=== PATIENT | female | born 1965 | race Caucasian/White ===

== ENCOUNTER → 2017-09-17 | Outpatient (CLI) | payer OTHER ==
[~2017-09-17] MED LIST: OMEG10007 PO; VITAMIN B PO
--- NOTE | 2017-09-17 09:05 | DIAGNOSTIC IMAGING REPORT ---
ABDOMEN LIMITED (US) HISTORY: 52 years-old Female RIGHT UPPER QUADRANT PAIN acute right upper quadrant abdominal pain COMPARISON: None available TECHNIQUE: Multiple real-time sonographic images of the abdominal right upper quadrant were obtained assessing grayscale appearance and color flow FINDINGS: The imaged pancreas appears unremarkable. Body and tail are obscured by bowel gas. The liver appears to be within normal limits without focal mass or intrahepatic biliary ductal dilation. Surgically absent gallbladder. Common bile duct measures in the upper limits of normal, 6 mm which is likely physiologic with postcholecystectomy state. Imaged right kidney is unremarkable without hydronephrosis, 10.3 cm in length. No other focal abnormal amount identified within the abdominal right upper quadrant. Valsalva technique demonstrated no abdominal wall hernia. IMPRESSION: Prior cholecystectomy without acute right upper quadrant abnormality identified. The above report was generated using voice recognition software. It may contain grammatical, syntax or spelling errors. Electronically signed by: Clark Smith M.D. 09/17/2017 9:03 AM Dictated Date/Time: 09/17/2017 9:02 AM
== END | disposition home or self-care (01) ==
LOC: C.ULTR 08:15
PROVIDERS: ATTEND Family Medicine
DX: R10.11 Right upper quadrant pain (principal); Z91.013 Allergy to seafood; Z90.49 Acquired absence of other specified parts of digestive tract

== ENCOUNTER 2018-11-05 05:58 | Inpatient (IN) ==
--- NOTE | 2018-10-19 10:47 | Anesthesiology Consultation ---
Date of Service October 19, 2018 Assessment & Plan (1) Encounter for pre-operative examination: Chart Review Chart Review: Acceptable Risk for Surgery and Patient seen in Pre Admission Testing Consults Requested none Teaching & Discussion Pre-Anesthesia Teaching/Discussion Notes: Instructed NPO after midnight before surgery, except medications with 15 cc of water. Medication instructions provided according to the PAT guidelines. History Surgery Operation Date: 11/05/18 07:45 Proposed Procedures p C5 Corpectomy, C6-C7 Anterior Cervical Discectomy and Fusion, Spinal Cord Monitoring - Bismark Ch DO Height/Weight Height: 5 ft 4.75 in Weight: 79.5 kg Allergies Allergy/AdvReac Type Severity Reaction Status Date / Time hazelnut Allergy Severe THROAT Verified 10/15/18 11:42 ITCHING No Known Drug Allergies Allergy Unknown . 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 Limited for past year due to knee and back pain. Still goes for power walks. Able to climb FOS easily. Denies CP or SOB. ) Past Family History Family History Aunt Family hx of colon cancer Father Family hx colonic polyps Past Surgical History Surgical History Bone spur LEFT FOOT X 2 H/O oophorectomy LEFT H/O shoulder surgery RT SHOULDER SURGERY RT MANIPULATION History of cholecystectomy History of colonoscopy x4 History of tooth extraction Past Anesthesia History No Hx of Anesthesia Complications and No Family Hx of Anesthesia Complications H/O Bradycardia in PACU History of PONV No Hx of PONV and Hx of Motion Sickness STOP BANG Total 1 Social History Smoking Status: Former smoker tobacco type: cigarettes Smoking cigarettes per day: ~1/2 ppd or less x 19 years Do You Dip or Chew Tobacco: No Smoking End Date: QUIT AGE 37 Hx Alcohol Use: Yes Alcohol type: wine and hard liquor alcohol intake frequency: a few times a week Hx Substance Use: No substance use type: does not use Review of Systems Patient denies chest pain, shortness of breath, dyspnea on exertion, cough, wheezing, palpitations. +Joint Pain (Neck, Back, Knees, Shoulders) +Acid Reflux (Mild, Diet controlled) Physical Exam Vital Signs BP: 122/84 P: 71 R: 16 T: 98.1 SPO2: 97% on RA ENMT Thyromental Distance: > or= 3.5 Finger Breadths (3.5) Mallampati Class: I Neck normal visual inspection and + limited neck extension Difficult examination due to patient being in a soft collar Respiratory normal respiratory effort Auscultation: lungs clear to auscultation bilaterally Cardiovascular Rate/Rhythm: regular rate and regular rhythm Heart Sounds: no murmur Neurologic moves all extremities Psychiatric Orientation: alert and oriented x 3 Testing Laboratory Results 10/19/18 11:33 10/19/18 11:33 10/19/18 10/19/18 10/19/18 11:33 11:33 11:33 PT 10.8 INR 1.1 APTT 27.0 Urine Color Yellow Urine Appearance Clear Urine pH 6.0 Ur Specific [place] 1.009 Urine Protein Negative Urine Glucose (UA) Negative Urine Ketones Negative Urine Nitrite Negative Ur Leukocyte Esterase Negative Blood Type A Positive Antibody Screen NEGATIVE Electrocardiogram Date: 10/19/18 Findings: + SB @ (57) and + no change from (08/20/15) Chest X-Ray FINDINGS: Cardiomediastinal silhouette normal. Lungs and pleural spaces clear. Prominent nipple shadows project over the lung bases. Mild degenerative changes of the spine. Cholecystectomy clips noted. IMPRESSION: 1. No acute cardiopulmonary disease. Other Testing MR cervical spine wo con 10/08/18 IMPRESSION: 1. Significant bulging discs and of mild/moderate disc herniations and multilevel bases. 2. This is most prominent at C4-C5 where a right central disc herniation is present with considerable narrowing of the right neuroforamina. 3. Significant but less prominent mild disc herniations at C5-C6 and C3-C4. 4. Significant osteophytic narrowing of the right neuroforamina at C3-C4. 5. Significant osteophytic narrowing of the neuroforamina bilaterally at C6-C7 associated with a broad-based bulging disc.
--- NOTE | 2018-10-19 10:49 | PAT Medication Instructions ---
Medication Instructions Date of Service October 19, 2018 Home Medications bupropion HCl [Wellbutrin SR] 100 mg PO QAM Take morning of surgery With a small sip of water, OTHERWISE NOTHING TO EAT OR DRINK AFTER MIDNIGHT: bupropion HCl [Wellbutrin SR] 100 mg PO QAM Other Notes If you have any questions please call us at [phone] or [phone] or [phone] or [phone]
--- NOTE | 2018-10-19 12:27 | XRay Report ---
XR chest Pre-admission PA/Lat CLINICAL HISTORY: 53 years-old Female presenting with preoperative assessment. TECHNIQUE: PA and lateral views of the chest were obtained. COMPARISON: None. FINDINGS: Cardiomediastinal silhouette normal. Lungs and pleural spaces clear. Prominent nipple shadows project over the lung bases. Mild degenerative changes of the spine. Cholecystectomy clips noted. IMPRESSION: 1. No acute cardiopulmonary disease. Electronically signed by: Alexander Ambrose M.D. 10/19/2018 12:26 PM
[2018-10-19 12:43] LABS: Appearance Urine Clear (Clear); Basophils # (auto) 0.05 K/uL (0-0.2); Bilirubin Urine Negative (Negative); Blood Urine Negative (Negative); Color Urine Yellow; Eosinophils # (auto) 0.27 K/uL (0-0.5); Eosinophils % (auto) 5.3 %; Glucose Urine UA Negative (Negative); Hematocrit (blood only) 38.8 % (37-47); Hemoglobin 13.2 g/dL (12.0-16.0); Ketones Urine Negative (Negative); Leukocyte Esterase Urine Negative (Negative); Lymphocytes # (auto) 1.95 K/uL (1.2-3.4); Lymphocytes % (auto) 38.6 %; Mean Platelet Volume 11.4 fL (7.4-10.4); Monocytes # (auto) 0.24 K/uL (0.11-0.59); Monocytes % (auto) 4.8 %; Neutrophils # (auto) 2.54 K/uL (1.4-6.5); Neutrophils % (auto) 50.3 %; Nitrite Urine Negative (Negative); Platelet Count 233 K/uL (130-400); Protein Urine Negative (Negative); RDW Coefficient of Variation 12.4 % (11.5-14.5); RDW Standard Deviation 41.1 fL (36.4-46.3); Red Blood Count 4.31 M/uL (4.2-5.4); Specific Gravity Urine 1.009 (1.000-1.030); Urobilinogen Urine Negative (Negative); White Blood Count 5.05 K/uL (4.8-10.8)
[2018-10-19 13:01] LABS: INR 1.1 (0.9-1.1); Prothrombin Time 10.8 Seconds (9.0-12.0)
[2018-10-19 15:19] LABS: BUN Creatinine Ratio 23.5 (10-20); Calcium 9.3 mg/dl (8.5-10.1); Creatinine Clr Calc Pharmacy 94.7 ml/min; Est GFR (African American) 111.6; Est GFR (Non-African American) 96.3
[2018-11-05] MEDS ORDERED: CEFAZOLIN 1000MG 1,000 MG/7.5 ML SYR IV SCH (06:00)
[2018-11-05] MEDS ORDERED: CeleBREX 200 MG CAP PO SCH (06:00)
[2018-11-05] MEDS ORDERED: LR 15ML/HR IV SCH (06:00)
[2018-11-05] MEDS ORDERED: GABAPENTIN 300 MG x 3 PO SCH (06:00)
[2018-11-05] MEDS ORDERED: ACETAMINOPHEN 500 MG TAB PO SCH (06:00)
[2018-11-05] MEDS ORDERED: ROCURONIUM BROMIDE 10 MG/ML 5 ML VIAL ONE (06:34)
[2018-11-05] MEDS ORDERED: LIDOCAINE HCL 2% 2 ML VIAL/AMP(20MG/ML) INFIL ONE (06:34)
[2018-11-05] MEDS ORDERED: PROPOFOL IV EMULSION 10 MG/ML 20 ML VIAL IV ONE ×2 (06:34→08:00)
[2018-11-05] MEDS ORDERED: SUCCINYLCHOLINE CHLORIDE 20 MG/ML 10 ML VIAL ONE (06:34)
[2018-11-05] MEDS ORDERED: DEXAMETHASONE SOD INJ 4 MG/ML VIAL ONE (06:34)
[2018-11-05] MEDS ORDERED: ONDANSETRON INJ 2 MG/ML 2 ML VIAL ONE ×2 (06:34→10:11)
[2018-11-05] MEDS ORDERED: MIDAZOLAM HCL 1 MG/ML 2ML VIAL ONE (06:35)
[2018-11-05] MEDS ORDERED: fentaNYL citrate 100 MCG/2 ML VIAL ONE ×2 (06:35→08:53)
[2018-11-05] MEDS ORDERED: ACETAMINOPHEN 1000 MG/100 ML IV IV ONE (07:01)
[2018-11-05] MEDS ORDERED: ATROPINE SULFATE 0.1 MG/ML 10ML SYR IV PRN (07:03)
[2018-11-05] MEDS ORDERED: HYDROmorphone INJ 1 MG/ML SYRINGE IV PRN (07:03)
[2018-11-05] MEDS ORDERED: PROMETHAZINE HCL 6.25 MG in SODIUM CHLORIDE 0.9% 50 ML IV PRN (07:03)
[2018-11-05] MEDS ORDERED: ONDANSETRON INJ 2 MG/ML 2 ML VIAL IV PRN ×2 (07:03→11:56)
[2018-11-05] MEDS ORDERED: BACITRACIN INJ 50,000 UNIT VIAL ONE (07:06)
[2018-11-05] MEDS ORDERED: PROPOFOL IV EMULSION 10 MG/ML 100 ML VIAL IV ONE (07:17)
--- NOTE | 2018-11-05 07:36 | History & Physical Bridge Note ---
Date of Service November 05, 2018 History & Physical Bridge Note I have examined the patient, reviewed the History & Physical and in the interval since the performance of the History & Physical I have noted the following changes of clinical significance: no changes noted
--- NOTE | 2018-11-05 07:37 | History & Physical Report ---
Date of Service November 05, 2018 Assessment & Plan (1) Neurogenic claudication due to lumbar spinal stenosis: Corpectomy C5 anterior cervical discectomy and fusion C6-7 Present on Admission?: Yes History of Present Illness Chief Complaint: Neck and arm pain Primary Care Provider: Courtney Baxter MD Patient is a 53-year-old female with chronic persistent neck and arm symptoms. After failing extensive course of nonoperative care she is here for surgical intervention. Allergies Allergy/AdvReac Type Severity Reaction Status Date / Time hazelnut Allergy Severe THROAT Verified 11/05/18 06:20 ITCHING No Known Drug Allergies Allergy Unknown . 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 Required: No Beliefs That Will Affect Care: None Current Living Situation: Spouse Other Information That Helps Us Care for You: No Feels Safe at Home: Yes Safety Concerns: Feels Safe At This Time Smoking Status: Former smoker Tobacco Type: cigarettes Cigarettes Per Day: ~1/2 ppd or less x 19 years Do You Dip or Chew Tobacco: No Smoking End Date: QUIT AGE 37 Second Hand Exposure: No Tobacco Cessation Education Requested by Patient: No Hx Alcohol Use: Yes Alcohol type: wine and hard liquor Hx Substance Use: No Physical Exam Physical Exam: Patient is alert and oriented neurologically intact Results & Data Vital Signs (Past 12 Hours) Vital Signs Temp Pulse Resp BP Pulse Ox 11/05/18 06:22 37.0 C 82 18 123/74 97
[2018-11-05] MEDS ORDERED: ePHEDrine sulfate 50 MG/ML SYR ONE (08:22)
[2018-11-05] MEDS ORDERED: PHENYLEPHRINE 100MCG/ML 5ML SYR ONE (08:22)
[2018-11-05] MEDS ORDERED: KETAMINE HCL INJ 50 MG/ML 10 ML VIAL ONE (08:43)
[2018-11-05] MEDS ORDERED: FLOSEAL HEMOSTATIC MATRIX 10ML TOP ONE (10:07)
[2018-11-05] MEDS ORDERED: GLYCOPYRROLATE 0.2 MG/ML VIAL ONE (10:11)
[2018-11-05] MEDS ORDERED: NEOSTIGMINE METHYLSULFATE 1 MG/ML 10ML VIAL ONE (10:11)
--- NOTE | 2018-11-05 10:12 | Operative Report ---
Post Operative Report Pre & Post Diagnosis Operation Date: 11/05/18 07:45 Pre-Op Diagnosis: Cervical spinal stenosis with myeloradiculopathy Post-Op Diagnosis: Same Procedure Operation Date: 11/05/18 07:45 Actual Procedures #1 anterior cervical corpectomy C5 with bilateral foraminotomies. #2 anterior cervical discectomy with bilateral foraminotomies C6-7. #3 anterior cervical arthrodesis C4-C6 and C6-C7. #4 placement of peek cage 23 mm in height C4-C6 and 7 mm in height at C6-7. #5 placement of willis plate and screws from C4-C7. #6 placement of locally harvested morselized autograft combined with DBM in the interbody cages. Surgeon Bismark Ch, String Studies Director Salvador Gates Estimated Blood Loss 20 Findings Consistent with Post-Op Diagnosis Specimens None Indications This is a 53-year-old female who presents with progressive weakness and difficulty with coordination involving upper extremities left greater than right. Subsequently like to go to the above-mentioned procedure. Description of Procedure Patient was met with identified and informed consent obtained. She was then ambrocio en to the operative suite underwent intubation placed in supine position the [place] table with head Das cigar head holer. All bony prominences well-padded eyes inspected to ensure no external pressure placed upon the peer at this point the anterior cervical spine was prepped and draped in normal sterile fashion. The assistance of fluoroscopy identified the see 5 6 disc space and a transverse incision was placed along the right anterior aspect of the cervical spine overlying this region. Sharp dissection with the assistance of bipolar electrocautery was performed down to and exposing the anterior cervical spine from C4-C7. Self-retaining retractors placed. Then performed a complete discectomy of see 4 5 out to the uncovertebral joints bilaterally followed by C6 5 6. [place] distracting pins were then placed in C4 and C6 to distract across the C5 vertebral body. A complete corpectomy was then performed including removal of all posterior annular fibers longitudinal ligament bilateral foraminotomies at both levels. Endplates were then burred to subcortical bleeding bone and a 23 mm peek cage filled with local autograft and DBM tapped in position. Distraction apparatus was removed and I proceeded to see 6 7. Again complete discectomy performed up to the uncovertebral joints bilaterally. This included removal of all posterior annular fibers and longitudinal ligament. The endplates were then burred to subcortical being bone and a 7 mm peek cage filled with local autograft and DBM tapped in position. Distraction apparatus was removed and a willis plate and screws applied with the assistance of fluoroscopy. The incision was then copiously irrigated explored to ensure no damage to surrounding structures remaining bleeding. 10 round BELLE drain inserted. The incision was then closed with 2 Vicryl in a fashion of 4 Monocryl for final closure Steri-Strip sterile dressings placed. Patient will continue to PACU stable condition. Please note record present at the entire procedure involved in patient positioning of the surgery and final skin closure. Lastly spinal cord monitoring was utilized throughout the procedure no changes noted. I attest to the content of the Intraoperative Record and any orders documented therein. Any exceptions are noted below.
--- NOTE | 2018-11-05 10:47 | Fluoroscopy Report ---
FL cervical 2-3V CLINICAL HISTORY: 53 years-old Female presenting with C5 CORPECTOMY, C6-C7 ACDF. TECHNIQUE: 3 fluoroscopic image(s) recorded as part of an intraoperative procedure. COMPARISON: Cervical spine MR from 10/08/2018. FINDINGS/IMPRESSION: There has been interval anterior cervical discectomy and fusion of C4-C7. C5 corpectomy. Normal anato castro alignment though there is slight straightening of normal lordosis. Supportive tubes devices and s urgical material project over the anterior soft tissues of the neck. Endotracheal tube terminates in the upper thoracic trachea. Please see surgical report for further details. Fluoroscopy dosage (mGy): 1.36. Fluoroscopy time: 12.6 seconds. Number or time of high level fluoroscopy (HLF), digital spot, or digital subtraction images: 0. Electronically signed by: Alexander Ambrose M.D. 11/05/2018 10:45 AM
--- NOTE | 2018-11-05 11:29 | Anesthesiology Progress Note ---
Date of Service November 05, 2018 Anesthesia Post Procedure Vital Signs Vital Signs: Temp Pulse Pulse Resp BP Pulse Ox 11/05/18 11:20 36.4 C L 62 19 110/61 100 11/05/18 11:10 76 15 114/61 100 11/05/18 11:00 63 12 113/61 100 11/05/18 10:50 77 17 119/63 100 11/05/18 10:40 68 13 114/64 100 11/05/18 10:30 80 14 104/71 100 11/05/18 10:24 36.4 C L 95 H 18 111/66 100 11/05/18 06:22 37.0 C 82 18 123/74 97 Pain Intensity Neck: Pain Intensity: 4 Transfer of Care Handoff Completed per policy Notes Mental Status: alert / awake / arousable Patient Amnestic to Procedure: Yes Nausea / Vomiting: adequately controlled Pain: adequately controlled Airway Patency, RR, SpO2: stable & adequate BP & HR: stable & adequate Hydration State: stable & adequate Anesthetic Complications: no major complications apparent
[2018-11-05] MEDS ORDERED: NALOXONE HCL 0.4 MG/1 ML VIAL/CARP IV PRN (11:56)
[2018-11-05] MEDS ORDERED: DiphenhydrAMINE HCL 50 MG/ML VIAL IV PRN (11:56)
[2018-11-05] MEDS ORDERED: DO NOT ADMINISTER PNEUMOCOCCAL VACCINE PRN (11:56)
[2018-11-05] MEDS ORDERED: ACETAMINOPHEN 1,000 MG/100 ML VIAL IV PRN (11:56)
[2018-11-05] MEDS ORDERED: DEXAMETHASONE SOD PHOSPHATE 8 MG in SYRINGE 0 ML IV PRN (11:56)
[2018-11-05] MEDS ORDERED: HYDROmorphone INJ 0.5 MG/0.5 ML SYR IV PRN (11:56)
[2018-11-05] MEDS ORDERED: LORazepam 0.5 MG/1 ML VIAL IV PRN (11:56)
[2018-11-05] MEDS ORDERED: MAGNESIUM HYDROXIDE SUSP 30 ML UDC PO PRN (11:56)
[2018-11-05] MEDS ORDERED: DO NOT ADMINISTER FLU VACCINE PRN (11:56)
[2018-11-05] MEDS ORDERED: LORazepam 0.5 MG TAB PO PRN (11:56)
[2018-11-05] MEDS ORDERED: RACEPINEPHRINE 2.25% NEBU SOLN 0.5 ML VIAL INH PRN (11:56)
[2018-11-05] MEDS ORDERED: SENNA 8.6 MG TAB PO PRN (11:56)
[2018-11-05] MEDS: LACTATED RINGER'S 1,000 ML IV SCH ×2 (12:18→23:02)
[2018-11-05] MEDS ORDERED: SCOPOLAMINE 1.5 MG TDSY TD SCH (12:30)
[2018-11-05] MEDS: CHECK SCOPOLAMINE PATCH PLACEMENT SCH (15:50)
[2018-11-05] MEDS: OXYCODONE HCL IR 5 MG TAB (IMMEDIATE RELEASE) PO PRN ×2 (15:50→20:31)
[2018-11-05] MEDS: CEFAZOLIN 2000MG 2,000 MG/15 ML SYR IV SCH (16:45)
[2018-11-05] MEDS: DOCUSATE SODIUM 100 MG CAP PO SCH (20:28)
[2018-11-06] MEDS: CHECK SCOPOLAMINE PATCH PLACEMENT SCH ×2 (00:34→07:35)
[2018-11-06] MEDS: CEFAZOLIN 2000MG 2,000 MG/15 ML SYR IV SCH ×2 (00:37→07:35)
[2018-11-06] MEDS: OXYCODONE HCL IR 5 MG TAB (IMMEDIATE RELEASE) PO PRN (07:35)
[2018-11-06] MEDS ORDERED: BuPROPion SR 100 MG TABCR PO SCH (09:00)
[2018-11-06] MEDS: DOCUSATE SODIUM 100 MG CAP PO SCH (09:06)
--- NOTE | 2018-11-06 09:49 | Discharge Summary ---
Date of Service November 06, 2018 Admission HPI Per Admitting Provider Patient is a 53-year-old female with chronic persistent neck and arm symptoms. After failing extensive course of nonoperative care she is here for surgical intervention. Principal Diagnosis Cervical spinal stenosis with myeloradiculopathy Discharge Data Allergies Allergy/AdvReac Type Severity Reaction Status Date / Time hazelnut Allergy Severe THROAT Verified 11/05/18 06:20 ITCHING No Known Drug Allergies Allergy Unknown . Verified 11/05/18 06:20 shellfish derived AdvReac Mild BLOATING Verified 11/05/18 06:20 AND IRRITABLE BOWEL Procedures Performed Operation Date: 11/05/18 07:45 Actual Procedures p C5 Corpectomy, C6-C7 Anterior Cervical Discectomy and Fusion, Spinal Cord Monitoring - Bismark Ch DO Ordered Studies 11/05/18 07:45 FL cervical 2-3V Routine FL fluoroscopy <1hr Routine Hospital Course (1) Neurogenic claudication due to lumbar spinal stenosis: Patient underwent anterior cervical corpectomy discectomy fusion tolerated as well as taken to orthopedic for possibly. Postop day 1 she was ambulating halls well. Arm symptoms improved. Swallowing well. No hoarseness. Subsequently she was discharged home. Discharge orders instructions from the chart for further review. Total Time Total Time Spent Total Time Spent (In Minutes): 20 minutes Discharge Plan Discharge Items Patient Disposition: Home - Self-Care Reason For Visit: Spinal Stenosis, Cervical Region Discharge Diagnosis: cervical stenosis Discharge Goals: Improve disease control Activity: Per 'Additional Instructions' section Non-emergency contact: Primary Care Provider Call non-emergency contact if: you have any medication questions Follow-up/Referrals: Courtney Baxter MD [Primary Care Provider] - Diet: Regular Addtl Provider Instructions: ACTIVITY RECOMMENDATIONS: SELF CARE INSTRUCTIONS AFTER CERVICAL FUSIONS 1. No smoking. Smoking drastically decreases the chance of a solid fusion. 2. No bending, lifting more than 5 pounds, or twisting (roll like a log when turning in bed). 3. You may shower 3 days after surgery. Thoroughly dry wound. Do not soak in the tub. 4. Cervical collar: Must be worn at all times including sleeping. You may remove the brace only to bath, eat and if you are sitting in a recliner. 5. Please walk as much as you can for exercise. Gradually increase the distance that you walk as your endurance increases. SPECIAL CARE INSTRUCTIONS: VERY IMPORTANT TO READ AND REVIEW A. Do not take any anti-inflammatory medications (i.e. Indocin, Advil, Aspirin, Naprosyn, Aleve, Motrin, etc.) as these may inhibit the chance of a solid fusion. Tylenol is okay to take. B. Your surgical incision has been closed with a cosmetic suture under the skin that will dissolve in about 6 weeks. In 14 days, you can use a pair of clean scissors and cut the suture that is left outside of the skin at the ends of your incision. C. Complications are uncommon, but please contact us if you have any signs or symptoms of: 1. wound infection (fever higher than 102.5 degrees F, redness, separation of wound, drainage, or increasing pain from the incision) 2. blood clots in legs (pain, swelling, redness and warmth in legs) 3. urinary tract infection (fever higher than 102.5 degrees, burning upon urination or increased frequency of urination) 4. nerve problems (inability to walk on your toes or heels, numbness, loss of bowel or bladder control) 5. any other symptoms that concern you. D. Please call the office at if you have any concerns or questions about your operation or recovery. MANAGING PAIN AFTER SPINAL SURGERY 1. Narcotic medication is intended for short-term use and will be provided for surgical pain. Surgical pain usually lasts for a period of 4-6 weeks. Narcotic medication includes Percocet, Vicodin, Darvocet, Tylenol #3 or Lortab. 2. Longer-term pain is more appropriately treated with non-narcotic medication such as Tylenol ES. 3. Muscle spasm is not appropriately treated with narcotics. Muscle relaxers such as Soma, Flexeril or Skelaxin can be used along with Tylenol ES. 4. Remember that we all live with some "aches and pains". This is not unusual or uncommon after an injury or as we get older. 5. We will provide appropriate medication within the normal guidelines of their prescribed use. We will also be very cautious and aware of potential abuse and extended duration of patients' medication needs. 6. Please allow 2-3 days to process refills. Prescriptions will not be mailed but must be picked up at the office. FOLLOW UP VISIT: Keep your scheduled follow-up appointment. Any questions, please call the office at . Prescriptions: New oxycodone 5 mg Tablet 5 mg PO Q4H PRN (Reason: Pain, Severe) Qty: 20 RF: 0 Continued bupropion HCl [Wellbutrin SR] 100 mg Tablet Sustained-Release 12 Hr 100 mg PO QAM RF: 0 sennosides [Senokot] 8.6 mg Tablet 2 mg PO DAILY PRN (Reason: Constipation) RF: 0 Stand-Alone Forms: [facility] Discharge Orders: Discharge Order (Routine); Ordered 11/06/18 Ordered By: Bismark Ch Admission Data Admit Date/Time: 11/05/18 11:53 Attending Provider: Bismark Ch Admit Provider: Bismark Ch Primary Care Provider: Courtney Baxter Service: Surgical Services
== END 2018-11-06 11:42 | disposition home or self-care (01) | DRG 472 ==
LOC: ASU 05:58 → 3E 11:53

== ENCOUNTER 2023-04-08 05:11 | Observation (INO) ==
--- NOTE | 2023-03-18 16:01 | PAT Medication Instructions ---
Medication Instructions Date of Service March 18, 2023 Home Medications Medication Instructions Recorded azelastine 137 mcg (0.1 %) nasal 2 spray intranasal DAILY #30 mL 10/03/22 spray aerosol bupropion HCl 100 mg tablet,12 hr sustained-release (Wellbutrin SR) 100 mg PO QAM loratadine 10 mg tablet (Claritin) 10 mg PO DAILY PRN Allergy Symptoms azelastine 137 mcg (0.1 %) nasal spray aerosol 2 spray intranasal DAILY ascorbic acid (vitamin C) 100 mg tablet (Vitamin C) 100 mg PO DAILY flurbiprofen 100 mg tablet 10 mg PO BID PRN Pain multivitamin 1 tab PO QAM vitamin B complex 1 tab PO DAILY ASK your surgeon for instructions flurbiprofen 100 mg tablet 10 mg PO BID PRN Pain DO NOT take the morning of surgery loratadine 10 mg tablet (Claritin) 10 mg PO DAILY PRN Allergy Symptoms multivitamin 1 tab PO QAM vitamin B complex 1 tab PO DAILY ascorbic acid (vitamin C) 100 mg tablet (Vitamin C) 100 mg PO DAILY Take morning of surgery With a small sip of water, OTHERWISE NOTHING TO EAT OR DRINK AFTER MIDNIGHT: bupropion HCl 100 mg tablet,12 hr sustained-release (Wellbutrin SR) 100 mg PO QAM azelastine 137 mcg (0.1 %) nasal spray aerosol 2 spray intranasal DAILY Other Notes If you have any questions please call us at [phone] or [phone] or [phone] or [phone]
--- NOTE | 2023-03-26 14:26 | Anesthesiology Consultation ---
Date of Service March 26, 2023 Assessment & Plan (1) Encounter for pre-operative examination: - Infectious disease screening: Per assessment on 03/26/23: No known infectious disease contacts or current infectious disease symptoms. No noted Covid positive test result in past 90 days. - Outpatient joint assessment: Pt currently scheduled for inpatient pathway. If surgeon requests review for outpatient joint pathway, patient is an acceptable candidate for outpatient joint program from anesthesia standpoint pending surgeon's office assessment that patient is motivated, has good support and completes [facility] preop requirements. - Hx glidescope/ACDF: C5 Corpectomy, C6-7 ACDF (11/05/18)- "Good view with Glidescope#3", ETT 7.0 at [facility] - C7 left screw fracture: Per patient, she states that she had "screw loose" from 10/[address] C-spine CT 10/01/22 notes fracture of the left screw at C7 with anterior displacement of the screw fragment and mild surrounding edema. She states she was seen by orthopedics/Dr. Ch and decision was made to not do further surgical intervention/revision in relation to the C7 finding. Note written to Dr. Ch regarding advice for perioperative positioning/intubation given C7 left screw fracture. Received response from ortho (04/01/23): "Per Dr. Ch.. He would recommend glidescope be used for intubation" - Patient acceptable risk for surgery pending surgeon-ordered PCP preop evaluation (appt 04/01, [facility]). Chart Review Chart Review: Patient seen in Pre Admission Testing Teaching & Discussion Pre-Anesthesia Teaching/Discussion Notes: Instructed NPO after midnight before surgery,except medications with 15 cc of water. Medication instructions provided according to the PAT guidelines. History Surgery Operation Date: 11/19/22 07:00 Proposed Procedures p Right Total Knee Arthroplasty - Chuy Ruiz MD Operation Date: 04/08/23 07:00 Proposed Procedures p Right Total Knee Arthroplasty - Chuy Ruiz MD Height/Weight Height: 5 ft 4.75 in Weight: 78.3 kg Allergies Allergy/AdvReac Type Severity Reaction Status Date / Time hazelnut Allergy Severe Throat Verified 03/23/23 11:09 itching No Known Drug Allergies Allergy Unknown . Verified 03/18/23 13:38 scallops Allergy Unknown Bloating, Verified 03/23/23 11:09 irritable bowel cat dander Allergy Verified 03/18/23 13:38 dog dander Allergy Verified 03/18/23 13:38 shellfish derived AdvReac Mild Bloating, Verified 03/23/23 11:09 irritable bowel Medications Home Medications Medication Instructions Recorded Confirmed Last Taken bupropion HCl 100 mg tablet,12 hr 100 mg PO QAM 10/15/18 03/18/23 11/04/18 08:00 sustained-release (Wellbutrin SR) loratadine 10 mg tablet (Claritin) 10 mg PO DAILY PRN Allergy Symptoms 10/01/21 03/18/23 Unknown azelastine 137 mcg (0.1 %) nasal 2 spray intranasal DAILY #30 mL 10/03/22 03/18/23 Unknown spray aerosol ascorbic acid (vitamin C) 100 mg 100 mg PO DAILY 03/18/23 03/18/23 Unknown tablet (Vitamin C) flurbiprofen 100 mg tablet 10 mg PO BID PRN Pain 03/18/23 03/18/23 Unknown multivitamin 1 tab PO QAM 03/18/23 03/18/23 Unknown vitamin B complex 1 tab PO DAILY 03/18/23 03/18/23 Unknown Past Medical History Medical History History of COVID-2020- "resolved" Neurogenic claudication due to lumbar spinal stenosis Lumbar spinal xray 05/2020: multilevel degenerative changes with moderate disc space narrowing at the L3-4, L4-5 and L5-S1 levels Spinal stenosis Diverticulosis Depression Anxiety Exercise / Class Metabolic Activity II 4-5 Yardwork/Stairs/Walk up hill (one FS (no CP, no SOB)) Past Family History Family History Aunt Family hx of colon cancer Colorectal cancer paternal Father Family hx colonic polyps Other Allergies Asthma Heart disease Hypertension No family history of bleeding disorder Denies family history of Ovarian cancer Breast cancer Past Surgical History Surgical History History of fusion of cervical spine C5 Corpectomy, C6-7 ACDF (11/05/18): "Good view with Glidescope#3", ETT 7.0 at [facility] Bone spur Left foot x2 H/O shoulder surgery Right shoulder surgery Right manipulation History of colonoscopy x4 History of cholecystectomy H/O oophorectomy Left History of tooth extraction Past Anesthesia History No Hx of Anesthesia Complications and No Family Hx of Anesthesia Complications History of PONV No Hx of PONV and Hx of Motion Sickness Social History Smoking Status: Former smoker tobacco type: cigarettes Do You Dip or Chew Tobacco: No Smoking End Date: quit >21 yrs ago (hx ~1/2 ppd or less x 19 years) Hx Alcohol Use: Yes Alcohol type: wine and hard liquor alcohol intake frequency: a few times a month Hx Substance Use: No substance use type: does not use Review of Systems Patient denies chest pain, shortness of breath, dyspnea on exertion, fever, chills, cough, wheezing, palpitations. Physical Exam Vital Signs VITALS BP 109/81 P 79 TEMP 98.3 SP02 98%RA RESP 18 PHYSICAL Decreased cervical extension range of motion. Full TMJ range of motion. TMD 3 finger breaths Mallampati Score 1 Dentition: intact, lower permanent wire Lungs: clear throughout to auscultation Cardiac: regular rate and rhythm, no murmurs noted Spine: normal Carotid arteries: negative bruit Extremities: no LE edema Lab Results Anesthesia Preop Results Results Anesthesia Widget: WBC 5.95 K/ul (4.8-10.8) 03/26/23 Hgb 12.9 g/dl (12.0-16.0) 03/26/23 Hct 38.0 % (37.0-47.0) 03/26/23 Plt 267 K/uL (130-400) 03/26/23 Na 141 mmol/L (136-145) 03/26/23 K 3.7 mmol/L (3.5-5.1) 03/26/23 Cl 106 mmol/L (98-107) 03/26/23 CO2 31 mmol/L (21-32) 03/26/23 BUN 11 mg/dl (6-23) 03/26/23 Creat 0.74 mg/dl (0.6-1.2) 03/26/23 Glucose Level 92 mg/dl (70-99(Fasting)) 03/26/23 PT 11.4 Seconds (9.0-12.0) 03/26/23 PTT 28.8 Seconds (21.0-31.0) 03/26/23 INR 1.0 (0.9-1.1) 03/26/23 Urine Color Yellow 03/26/23 Urine Appearance Clear (Clear) 03/26/23 Urine pH 7.5 (4.5-7.5) 03/26/23 Urine Specific [place] 1.006 (1.000-1.030) 03/26/23 Urine Protein Negative (Negative) 03/26/23 Urine Glucose (UA) Negative (Negative) 03/26/23 Urine Ketones Negative (Negative) 03/26/23 Urine Blood Negative (Negative) 03/26/23 Urine Nitrite Negative (Negative) 03/26/23 Urine Bilirubin Negative (Negative) 03/26/23 Urine Urobilinogen Negative (Negative) 03/26/23 Urine Leukocyte Esterase Negative (Negative) 03/26/23 Blood Type A Positive 03/26/23 Antibody Screen NEGATIVE 03/26/23 Testing Electrocardiogram Date: 03/26/23 NSR at 70bpm. "Normal ECG" Chest X-Ray Date: 03/26/23 FINDINGS: Cardiomediastinal and hilar silhouettes are within normal limits. No pneumothorax, pleural effusion or airspace consolidation. Cholecystectomy. Cervical spinal fusion hardware. IMPRESSION: No acute process. Cervical Spine CT Date: 10/01/22 1. There is no evidence of bony fracture or subluxation involving the cervical spine. 2. Postsurgical and spondylotic change as above. 3. There is fracture of the left screw at C7 with anterior displacement of the screw fragment and mild surrounding edema. Other Testing Video Swallow Indication: Dysphagia Date: 12/04/22 1. No penetration or aspiration was seen with any of the sampled textures. 2. See dedicated speech pathology report for detailed findings and recommendations. 3. Esophageal dysmotility. 4. A screw fragment is seen anterior to the cervical spinal fusion hardware.
--- OUTSIDE RECORDS SUMMARY | 2023-04-08 05:25 | External Medical Summary | Continuity of Care Document ---
Author Name Unknown Organization [facility] [address] [place], [place] [address] Address [address] [place] [id number] Care Team Providers Care Study Manager Name Role Phone Courtney Baxter Primary Care Physician [phone] Kati Hatfield Unavailable Unavailable [facility] [id number] Date(s): 03/26/23 - 03/26/23 [facility] [address] [place] [id number] [facility] [address] [address] Encounter Diagnosis Right knee DJD(Discharge Diagnosis) - 03/26/23 Discharge Disposition: Home or Self Care Attending Physician: VALENTINA Marx, Hernan Romano Referring Physician: MD Joseph, Chuy Suazo Allergies, Adverse Reactions, Alerts Substance Reaction Severity Status shellfish stomach problems Active Horses Itchy Active scallops Unknown reaction Active Allergy Not found in Search 1 itchy, swelling around h ead Active 1Raw apples, cherries, and hazelnuts Immunizations Given and Recorded Vaccine Date Status Refusal Reason influenza virus vaccine, inactivated 01/15/23 Edin rded influenza virus vaccine, inactivated 03/03/19 Edin rded SARS-CoV-2 (COVID-19) mRNA BNT-162b2 vax 09/18/20 Recorded SARS-CoV-2 (COVID-19) mRNA BNT-162b2 vax 08/28/20 Recorded tetanus/diphtheria/pertuss, acel (Tdap) 10/02/ G iven influenza virus vaccine, H1N1 1 06/07/09 Recorded 1Result Comment: 2021-07-08: Historical information-source unspecified Medications Ansaid 100 mg oral tablet Start: 08/11/22 7:45:00 EDT, 1 tab, PO, bid, Disp# 60 tab, Refills: 1, PRN: as needed for arthritis, Pharmacy: [facility]/pharmacy #[id number] Start Date: 08/11/22 Status: Ordered azelastine 137 mcg/inh (0.1%) nasal spray SPRAY 2 SPRAYS INTRANASALLY DAILY Start Date: 11/27/22 Status: Ordered buPROPion 100 mg/12 hours (SR) oral tablet, extended release Start: 01/29/23 13:17:00 EDT, See Instructions, Disp# 30 tab, Refills: 3, TAKE 1 TABLET BY MOUTH EVERY DAY, Pharmacy: [facility]/pharmacy #[id number] Start Date: 01/29/23 Status: Ordered Claritin Start: 01/14/21 13:42:00 EDT Start Date: 01/14/21 Status: Ordered Mental Status 03/26/23 Barriers to Learning one year None evide nt Mandatory Health Literacy Documentation Yes Health Literacy Communication Barriers N ever Primary Language Lithuanian Problem List Condition Confirmation Course Effective Dates Status H ealth Status Informant Adhesive capsulitis of shoulder Confirmed Active Right rotator cuff tear Confirmed Active Arthritis of right glenohumeral joint Confirmed Active Multiple nevi Confirmed Active Changing skin lesion Confirmed Active Diverticular disease Confirmed Active Atypical nevus Confirmed Active History of atypical nevus Confirmed Active Irritable bowel syndrome Confirmed Active Patellofemoral chondrosis Confirmed Active Mild depression Confirmed Active Right knee DJD Confirmed Active DJD (degenerative joint disease) 1 Confirmed Active Osteoarthritis of knee Confirmed Active Sebaceous hyperplasia Confirmed Active Seborrheic keratoses Confirmed Active Spider angioma Confirmed Active Weight disorder Confirmed Active 1B/L knees Diagnosis Diagnosis Type Effective Dates Health Status Cl inical Service Informant Right knee DJD Discharge Diagnosis 03/26/23 Non-Specified Procedures Procedure Date Related Diagnosis Body Site Status Shave biopsy and cauterizati on of skin 1 11/27/22 Completed Shave biopsy and cauterization of skin 08/26/21 Completed Excision 02/07/21 Completed Shave biopsy and cauterizati on of skin 2 01/14/21 Completed Shave biopsy and cauterizati on of skin 3 01/14/21 Completed Transvaginal ultrasound scan 4 07/16/20 Completed Plain X-ray of lumbar spine 5 05/21/20 Completed Back 11/05/18 Completed MRI 6 10/08/18 Completed Colonoscopy 7 08/04/18 Completed X-ray of right knee 8 01/14/18 Com pleted Ultrasound scan of upper abdomen 9 09/17/17 Completed MR Arthrogram of the right shoulder 10 08/08/15 Completed Mammogram 11 02/09/15 Completed Colonoscopy 12 08/01/13 Completed Cholecystectomy 13 Comple deandre Foot 14 Completed Left oophorectomy 15 Comp leted Surgery 16 Completed 11. left superior rose 2. right inner thigh 2Shave with cautery - Right jawline 3Shave with cautery - Left lower leg 4impression 1. The 2 previously seen uterine leiomynomas are grossly stable in size since the prior exam 2. A small exophytic cyst measuring 0.9 cm autting the right ovary, new since the prior exam. The previously seen right ovarian cyst has as resolved 3. Stable small cyst in the left adnexa measuring 0.8com 5IMPRESSION: 1. Moderate multilevel degenerative change 2. No acute fractures or traumatic subluxations. 6Significant bulging discs and of mild/moderate disc herniation and multilevel bases This is most prominent at C4-C5 where a right central disc herniation is present with considerable narrowing of the right neuroforamina Significant but less prominent mild disc herniation at C5-C6 and C3-C4 Significant osteophytic narrowing of the right neuroformina at C3-C4 Significant osteophytic narrowing of the neuroforamina bilat at C6-C7 associated with a broad basedbuldging disc. 7Impression - Non-bleeding internal hemorrhoids - melanosis in the colon - No specimens collected 8Minimal degenerative change. No acute process. 9Prior cholecystectomy without acute right upper quadrant abnormality identified. 101. There is tendinopathy of the supraspinatous and infraspinatus tendons. There is a partial thickness tear of the supraspinatous tendon approximately 1.3 cm from the leading edge. No full thickness rotator cuff tear is seen. 2. There is a large degenerative spur (measuring at least 1.0 cm in size) seen arising from the anterior/inferior aspect of the humeral head at the glenohumeral articulation. Mild arthritic change ispresent in the greater tuberosity of the humeral head 3. The labrum appears intact 11wnl/repeat 1 yr 12Diverticulosis in the sigmoid colon 13around 2006 14foot surgery - bone spur, bone cyst first metatarsal head. 15for large cyst 16# 1 anterior cervical corpectomy C5 with bilateral foraminotomies. #2 anterior cevical disectomy with bilateral foraminotomies C6-7. #3 anterior cervical arthrodesis C4-C6 and C6-C7. #4 placement of peek cage 23 mm in height C4-C6 and 7 mm in height at C6-7. # 5 placemen of willis plate and screws from C4-C7. #6 placemnt of locally havested morselized autograft combine with DBM in the inerbody cages. Vital Signs Most recent to oldest [Reference Range]: 1 Height 160.0 cm (03/26/23 1:14 PM) Patient Weight 75.6 kg (03/26/23 1:14 PM) Body Mass Index 29.53 kg/m2 (03/26/23 1:14 PM) Temperature [36.5-37.9 DegC] 34.4 DegC *LOW* (03/26/23 1:14 PM) Respiratory Rate 20 br/min (03/26/23 1:14 PM) Blood Pressure 110/80mmHg (03/26/23 1:14 PM) Cuff Pulse Pressure 30 mmHg (03/26/23 1:14 PM) Social History Social History Type Response Tobacco 1 Smoking Status Never smoked cigaret richy Sex Female 1quit 12 yrs ago. 18 yrs of - half ppd. shell fish - bloating. Pre-OP H & P * VALENTINA Marx, Hernan D: PERFORM, MODIFY Event Display: Pre-OP H & P Authored Date: [id number] PRE-OPERATIVE HISTORY AND PHYSICAL Name: LEEANNA MOODY Patient Number: [id number] : 1965 Date of Service: 03/26/2023 PRE-OP Diagnosis: Right knee DJD Planned Procedure: Right knee total knee arthroplasty Chief Complaint: Right knee pain History of Present Illness (including history relevant to procedure): This 58-year-old female presents today for her preoperative history and physical. She is scheduled to undergo a right knee total knee arthroplasty on 04/08/2023. She has had a longstanding history of bilateral knee pain, right greater than left, for several years. She initially managed it well with activity modification, OTC medications, and viscosupplementation. Over the last year her right knee pain has become worse. It is no longer manageable with conservative treatment. Her pain is affecting her ADLs. It is worse with weightbearing and with ambulation. She elects to proceed with surgical invention in hopes of improving her pain and function. She denies any numbness or tingling. She now has nightly pain and occasional effusions. Preoperative imaging has been obtained. Review Of Systems: a total of 10 systems were reviewed and are significant only for below stated conditions. Social history: Patient is employed. . No tobacco use, occasional EtOH use. Family history: Significant for heart disease and cancer. Past Medical History: Problems: Right knee DJD Seborrheic keratoses Atypical nevus Multiple nevi Spider angioma Sebaceous hyperplasia Patellofemoral chondrosis Arthritis of right glenohumeral joint Right rotator cuff tear Weight disorder Irritable bowel syndrome Diverticular disease Adhesive capsulitis of shoulder Mild depression Procedure History Procedure Procedure Date Comments Left oophorectomy - for large cyst Cholecystectomy - around 2006 Foot - foot surgery - bone spur, bone cyst first metatarsal head. C4-7 surgery - # 1 anterior cervical corpectomy C5 with bilateral foraminotomies. #2 anterior cevical disectomy with bilateral foraminotomies C6-7. #3 anterior cervical arthrodesis C4-C6 and C6-C7. #4 placement of peek cage 23 mm in height C4-C6 and 7 mm in height at C6-7. # 5 placemen of willis plate and screws from C4-C7. #6 placemnt of locally havested morselized autograft combine with DBM in the inerbody cages. Shave biopsy and cauterization of skin 11/27/2022 - 1. left superior shin2. right inner thigh Shave biopsy and cauterization of skin 08/26/2021 Excision 02/07/2021 Shave biopsy and cauterization of skin 2021 - Shave with cautery - Left lower leg Shave biopsy and cauterization of skin 2021 - Shave with cautery - Right jawline Transvaginal ultrasound scan 07/16/2020 - impression1. The 2 previously seen uterine leiomynomas are grossly stable in size since the priorexam2. A small exophytic cyst measuring 0.9 cm autting the right ovary, new since the prior exam. The previously seen right ovarian cyst has as resolved3. Stable small cyst in the left adnexa measuring 0.8com Back 11/05/2018 MRI 10/08/2018 - Significant bulging discs and of mild/moderate disc herniation and multilevel basesThis is most prominent at C4-C5 where a right central disc herniation is present with considerable narrowing of the right neuroforaminaSignificant but less prominent mild disc herniation at C5-C6 and C3-M8Lhwpfujfcqv osteophytic narrowing of the right neuroformina at C3-R6Dckfdrmoilj osteophytic narrowing of the neuroforamina bilat at C6-C7 associated with a broad based buldging disc. Colonoscopy 08/04/2018 - Impression- Non-bleeding internal hemorrhoids- melanosis in the colon- No specimens collected Ultrasound scan of upper abdomen 09/17/2017 - Prior cholecystectomy without acute right upper quadrant abnormality identified. MR Arthrogram of the right shoulder 08/08/2015 - 1. There is tendinopathy of the supraspinatous and infraspinatus tendons. There is a partial thickness tear of the supraspinatous tendon approximately 1.3 cm from the leading edge. No full thickness rotator cuff tear is seen.2. There is a large degenerative spur (measuring at least 1.0 cm in size) seen arising from the anterior/inferior aspect of the humeral head at the glenohumeral articulation. Mild arthritic change is present in the greater tuberosity of the humeral head3. The labrum appears intact Mammogram 02/09/2015 - wnl/repeat 1 yr Colonoscopy 08/01/2013 - Diverticulosis in the sigmoid colon Allergies and Sensitivities: Horses(Itchy) scallops(Unknown reaction) Allergy Not found in Search(itchy, swelling around head) shellfish(stomach problems) Current Home Meds: (Last Updated 03/26 13:13) azelastine nasal (azelastine 137 mcg/inh (0.1%) nasal spray) SPRAY 2 SPRAYS INTRANASALLY DAILY buPROPion (buPROPion 100 mg/12 hours (SR) oral tablet, extended release) TAKE 1 TABLET BY MOUTH EVERY DAY flurbiprofen (Ansaid 100 mg oral tablet) 100 mg PO bid PRN: as needed for arthritis loratadine (Claritin) Vitals: Last Updated 03/26/23 13:14 Weights: Last Updated 03/26/23 13:14 Date Temp Pulse BP RR SpO2 FIO2 Date Wt(kg) Wt(lb) 03/26 13:14 34.4 110/80 20 97 03/26 13:14 75.6 166 03/26 13:14 75.6 166 24 Hr Tmax: 34.4 at 03/26 13:14 Initial Wt: 03/26 75.6 kg 166 lb Physical Exam: (relevant to the procedure, including heart and lung evaluation) General: Well-developed, well-nourished, middle-aged female, in no acute distress. Sitting in a chair. Alert and oriented. HEENT: Normocephalic, atraumatic. Eyes PERRLA, EOMI. Nares patent bilaterally without current drainage. Oropharynx without erythema or exudate. Uvula midline. Oral mucosa moist. Good dentition with fillings. Neck: No JVD. Cardiac: RRR. No MGR. Peripheral pulses are 2+. Lungs: Clear to auscultation bilaterally. No crackles, rhonchi, or wheezing. Good air movement. Abdomen: Bowel sounds present x4. Soft nontender. No organomegaly. No masses. Extremities: Right knee evaluation reveals no significant intra-articular effusion. She has full terminal extension. Flexion to greater than 110 degrees. Strength is 5/5 with good quad tone. She has no palpable defect in the patellar tendon or quadriceps tendon. There is medial and lateral joint line discomfort with palpation, with medial being worst. Stable collateral ligaments. Normal Linda. Good patellar mobility. She is ambulating today with a moderately antalgic gait. Neuro: Gross sensation is intact across both lower extremities by soft touch. Skin: Warm and dry with good turgor. No rashes. No ecchymosis or erythema. No intra-articular effusion today. Studies of radiology results (relevant to the procedure): Right knee exhibits tricompartmental osteoarthritis worst in the medial compartment. ASSESSMENT: Right knee DJD Plan: Approximate 25 minutes was spent with the patient reviewing operative procedure, postoperative recovery, physical therapy requirements, and medication use. Postoperative prescriptions for Percocet and Coumadin will be provided at discharge from the hospital. Anticipate discharge to home with home health services for 2 weeks and then outpatient PT. She has an appointment to see her PCP for medical clearance next week. She is aware of the COVID-19 risks associated with surgery. She is currently asymptomatic of any COVID-19 symptoms. PDMP was checked and there are no concerning findings. She will attend [facility] today for preoperative lab work, EKG, and chest x-ray. Prescription was provided for a walker. Postoperative follow-up appointment has been made for April 23 with me for staple removal. This dictation has been completed using [employer] text voice recognition software. Grammatical errors, omissions, insertions, and misspellings may be present due to the limitations of the software. Electronic Signature on File Electronically Reviewed/Signed by: Hernan Marx PA-C Author Signature Dt/Tm:03/26/2023 05:43 PM Division of Sports Medicine Electronically Reviewed/Signed by: Chuy Ruiz MD Cosigner Signature Dt/Tm: 03/26/2023 06:09 PM 3D Modeler for Clinical Affairs, [facility] Professor in Orthopaedics Signal Mechanic, [facility] CDS Patient Care team information Care Team Personnel Name: MD Landers Juan Position: Physician - Family Med Member Role: Lifetime Relationship Address: Address: [address] [place] [address] Name: MD Baxter Madhavi Position: Physician - Family Med Member Role: Primary Care Provider Address: Address: [address] [place] [address] Care Team Related Persons Name: CIARAN MOODY Address: home [address] [place], [place] [id number] Name: CIARAN MOODY Address: home [address] [place], [place] [id number]
[2023-04-08] MEDS ORDERED: LR 500ML BOLUS, THEN 15ML/HR IV SCH (06:00)
[2023-04-08] MEDS ORDERED: ROPIVACAINE 0.5% HCL/PF 150 MG, BUPIVACAINE 0.75% MPF 20 ML, EPINEPHrine 0.15 MG, Ketor... INFIL SCH (06:00)
[2023-04-08] MEDS ORDERED: TRANEXAMIC ACID 1,000 MG **IV Pre-op IV SCH (06:00)
[2023-04-08] MEDS ORDERED: LR 60ML/HR IV SCH (06:00)
[2023-04-08] MEDS ORDERED: ceFAZolin 2000MG 2,000 MG/15 ML SYR IV SCH (06:00)
[2023-04-08] MEDS ORDERED: BUPIVACAINE 0.5 % 5 MG/1 ML PF 10ML VIAL ONE (06:26)
[2023-04-08] MEDS ORDERED: BUPIVACAINE 0.25% PF 30 ML VIAL ONE (06:26)
--- NOTE | 2023-04-08 06:31 | History & Physical Bridge Note ---
Date of Service April 08, 2023 History & Physical Bridge Note I have examined the patient, reviewed the History & Physical and in the interval since the performance of the History & Physical I have noted the following changes of clinical significance: consent obtained/site verified.no changes noted
[2023-04-08] MEDS ORDERED: LIDOCAINE 2% 2 ML VIAL/AMP(20MG/ML) INFIL ONE (06:32)
[2023-04-08] MEDS ORDERED: PROPOFOL IV EMULSION 10 MG/ML 20 ML VIAL IV ONE (06:32)
[2023-04-08] MEDS ORDERED: ORTHO JOINT ANESTHETIC ONE (06:33)
[2023-04-08] MEDS ORDERED: MIDAZOLAM HCL 1 MG/ML 2ML VIAL ONE ×2 (06:33→07:23)
[2023-04-08] MEDS ORDERED: ATROPINE SULFATE 0.1 MG/ML 10ML SYR IV PRN (07:15)
[2023-04-08] MEDS ORDERED: ONDANSETRON INJ 2 MG/ML 2 ML VIAL IV PRN ×2 (07:15→09:28)
[2023-04-08] MEDS ORDERED: ePHEDrine sulfate 50 MG/ML AMP IV PRN (07:15)
[2023-04-08] MEDS ORDERED: PHENYLEPHRINE 100MCG/ML 10ML SYR IV ONE (08:12)
--- NOTE | 2023-04-08 08:26 | Post Operative Brief Note ---
Immediate Post Op Note v1 Date of Surgery April 08, 2023 Pre & Post Diagnosis Operation Date: 04/08/23 07:00 Pre-Op Diagnosis: Right Knee Degenerative Joint Disease Post-Op Diagnosis: Right Knee Degenerative Joint Disease I identified the patient and participated in the time-out.: Yes Procedure Operation Date: 04/08/23 07:00 Actual Procedures p Right Total Knee Arthroplasty(Right) - Chuy Ruiz MD Surgeon Chuy Ruiz MD Senior Director Creative Services BART /Francisco J Estimated Blood Loss 25 Findings Consistent with Post-Op Diagnosis Severe medial and patellofemoral disease Fluids See anesthesia report
--- NOTE | 2023-04-08 08:29 | Operative Report ---
Post Operative Report Procedure Date: April 08, 2023 Pre & Post Diagnosis: [Osteoarthritis right knee preop diagnosis Postop diagnosis same medial compartment medial patellofemoral joint] Time Out: I identified the patient and participated in the time-out. Procedure: [Cemented right total knee replacement] Surgeon: Shar] Channel Supervisor: [BART/Francisco J] Estimated Blood Loss: [25 cc] Findings: [Severe medial and medial patellofemoral disease] Specimens: [Bone pathology] Description of Procedure: [] After the patient was appropriate notified site verified consent verified antibiotics confirmed being given TXA confirmed to be given the right lower extremity was examined revealing extension to -3 flexion to 225 leg was then prepped and draped usual routine fashion tourniquet applied and inflated to 275 mmHg of exsanguination limb a rubber Esmarch bandage for total of 48 minutes. Midline exposure utilized parapatellar arthrotomy performed. Synovectomy completed. Osteophytes resected. Distal femur entered. Cruciates resected. Tibia subluxated menisci resected. Distal femur resected 14 mm proximal tibia 4 mm the extension gap was excellent. Femur was sized to 2-1/2 appropriate resections made anterior posterior, chamfer cuts the flexion gap was checked and was excellent the box cut was then made to size 2 and half it well. The tib tibia was broached and reamed to a size 2-1/2 and a 10 mm spacer gave excellent range of motion and good midrange stability and. The patella was resected leaving 14 mm and a 35 button was applied. It tracked well. Ortho mix was injected all about the knee. All trial elements removed the knee irrigated with Betadine Pulsavac and then permanent cemented into position tibia femur patella in that order a 12 minutes the tourniquet was deflated. At 14 minutes the knee was inspected no major cement removal required. Wound was irrigated. Permanent liner was seated knee reduced and closed in 40 degrees of flexion with #2 Vicryl 2-0 Vicryl and standstill clips appropriate dressing applied the patient transferred recovery in satisfactory addition he tolerated procedure well. Summary of implant size 2 and half femur size 2 and half tibia size 2-1/2 10 mm spacer posterior cruciate substituting oval dome 3 peg patella size 35 2 bags of [place] G cement these were all J&J rotating platform implants. DVT prophylaxis per protocol. Attestation: I attest to the content of the Intraoperative Record and any orders documented therein. Any exceptions are noted below.
--- NOTE | 2023-04-08 08:30 | Orthopedic Progress Note ---
Date of Service April 08, 2023 Orthopedic Progress Note Tolerated right total knee replacement well. Denies chest pain shortness of breath fever chills nausea vomiting headache. Vital signs are stable she is afebrile. Neurovascular check femoral sciatic nerve limited by spinal. Wound dressing clean dry and intact. X-rays pending. Assessment doing well status post right total knee replacement the family contacted. DVT prophylaxis per protocol. Check x-rays.
--- NOTE | 2023-04-08 08:31 | Discharge Summary ---
Date of Service April 09, 2023 Admission HPI Per Admitting Provider Right knee pain Principal Diagnosis Osteoarthritis right knee Discharge Data Allergies Allergy/AdvReac Type Severity Reaction Status Date / Time hazelnut Allergy Severe Throat Verified 04/08/23 05:39 itching No Known Drug Allergies Allergy Unknown . Verified 04/08/23 05:39 scallops Allergy Unknown Bloating, Verified 04/08/23 05:39 irritable bowel cat dander Allergy Verified 04/08/23 05:39 dog dander Allergy Verified 04/08/23 05:39 shellfish derived AdvReac Mild Bloating, Verified 04/08/23 05:39 irritable bowel Consultations None Procedures Performed Operation Date: 04/08/23 07:00 Actual Procedures p Right Total Knee Arthroplasty(Right) - Chuy Ruiz MD Ordered Studies 04/08/23 05:00 US - OR guided needle placemen Routine Hospital Course (1) Status post right knee replacement: Plan Care pathway possible discharge if she does well now if not stays overnight 23- hour admission. Total Time Total Time Spent Total Time Spent (In Minutes): 10 minutes Discharge Plan Discharge Items Patient Disposition: Home - Home Health Services Reason For Visit: Right Knee Osteoarthritis Discharge Diagnosis: Right knee s/p total knee replacement Condition on Discharge: Good Activity: Per Instructions section Lifting: Wait until after follow-up appointment Bathing: Keep incision dry Sexual Activity: Wait until after follow-up appointment Exercise/Sports: Wait until after follow-up appointment Driving/Machine Use: No driving until cleared by Dr. Ruiz Weightbearing: Full weightbearing Non-emergency contact: Surgeon Call non-emergency contact if: you have any medication questions, your pain is not controlled, your temperature is above 101, your wound has increased redness, your wound has increased drainage and your wound pain has increased Follow-up/Referrals: Hernan Marx PA-C [Physician Chemical Processor] - 04/23/23 2:30 pm Courtney Baxter MD [Primary Care Provider] - Diet: Regular Addtl Attending Provider Instructions: New Medicine: * You will likely be taking one or more of these medications: 1. Percocet - Take, as directed, when you need it, every four to six hours to control your pain. 2. Iron Sulfate - Take three times each day for the month after surgery to help you replace the blood lost during surgery. 3. Eliquis - Thins your blood to lessen the chance of forming a blood clot. * The most common side effects of pain medicine and iron are nausea and constipation. If nausea or constipation is too much of a problem or if you have any questions about your new medicines or doses, call [facility] at . We will try to help you manage these issues. "VERY IMPORTANT TO READ AND REVIEW" Blood Clots and Blood Thinning Medicine: * You are given Eliquis during the immediate post-operative period to lessen the risk of blood clots forming in your legs and/or lungs. It is usually given for six weeks after surgery. Pain: * The immediate post-operative period after knee replacement surgery is often quite painful. * You are given a prescription for pain medicine. You should take it, as directed, when you need it, especially before physical therapy and before going to bed. Pain that interferes with sleep is very common and can last several months. * You will likely need pain medicine for the first four to six weeks. It will not stop all of the pain. The pain will lessen and as you feel better, you may change to milder pain medicine such as Tylenol. * The most common side effects of pain medicine are nausea and constipation, so don't take more than you need. Physical Therapy: * You will have physical therapy two or three times each week for four to six weeks after your surgery in order to regain your knee range of motion and to retrain your knee to work properly. * It is just as important to make sure you are getting your knee perfectly straight as it is to regain your knee bend. * Taking a pain pill an hour before therapy can help you have a more productive and comfortable therapy session if needed. Home Exercise: * You were shown a series of exercises (heel props, heel slides, etc.) in the hospital. Do these exercises three to four times each day including the exercises you were shown in physical therapy. Walking: * Get up and walk several times each day. For the first four weeks, try not to stand or walk for more than one hour at a time. If you do stand or walk for more than one hour, you will not hurt anything, but your knee and leg will likely swell. * As you feel comfortable, you may change from the walker or crutches to a cane and then to independent walking. SELF CARE INSTRUCTIONS AFTER TOTAL KNEE REPLACEMENT A. You may need to continue a physical therapy program after discharge from the hospital. There are several options available to you. Your doctor will assist you in selecting the best one for you. 1. An out-patient facility 2 to 3 times a week for therapy or home therapy. 2. Continue working on all exercises taught to you in the hospital. Your goals should be to increase bending of your knee to 90 degrees and beyond and to fully straighten your knee. B. You may progress at your own pace from walking with a walker or crutches to a cane; then to no assistive devices. C. Make walking a part of your daily routine. Be up as much as comfortable with rest periods throughout the day. Rest with leg elevation is very important. Use the ice wrap frequently for the first 3-4 weeks. D. There are no restrictions on activities. You may ride in a car, shop, participate in slitting machine operator and all social activities. E. Wear the long elastic stockings (FILIPPO hose) 20 hours a day for six weeks after surgery. They can be removed several times a day for laundering and for a shower. F. Do not place a pillow behind your knee when resting. A pillow at your ankle is okay. VERY IMPORTANT TO READ AND REVIEW A. Take Eliquis (blood thinning medication) as directed by your doctor. B. There are a few signs you need to watch for after you are home. Call [facility] if you notice any of the followin. Increased severe knee pain. Some pain is expected especially when you exercise. 2. Increased swelling in your leg or knee; pain or swelling of the calf muscle in either lower leg. 3. Any fluid drainage from the incision. 4. Shortness of breath or chest pain. C. Please call [facility] at if you have any concerns or questions about your operation or recovery. The doctor or his nurse will return your call promptly. D. You must take antibiotics before dental work, bladder, bowel or other surgery. Call the office to obtain a prescription at least 2 days prior to your appointment. * CALL IF INCREASED PAIN, REDNESS, DRAINAGE OR FEVER GREATER THAT 101. * Sutures should be removed 15 days after surgery unless you are on chronic steroids, then it will be 14-18 days after surgery. Call your doctor if: * Temperature above 101 degrees F. * Pain not relieved by pain medicine ordered. * Increased drainage or redness from incision. * Notify your doctor with any questions or concerns. Keep your dressings clean and intact for the weekend. They can be changed on Thursday by home nursing if needed for soiling ice and elevate the leg frequently to reduce pain/swelling use the knee immobilizer when out of bed on and Thursday. Do not wear it in bed. It can be discontinued entirely on Thursday morning. use your walker for ambulation and for standing. Start your Eliquis night with dinner. It should be taken 2x day until completed. Pending Studies at Discharge: Yes (Bone pathology) Stand-Alone Forms: My [facility], Smoking Cessation Medications and DC Order Prescriptions: New Eliquis 2.5 mg tablet 2.5 mg PO BID Qty: 80 0RF oxycodone-acetaminophen [Percocet] 5-325 mg tablet 2 tab PO Q6H PRN (Reason: pain) Qty: 18 0RF Rx Instructions: initial script No Action azelastine 137 mcg (0.1 %) aerosol,spray 2 spray intranasal DAILY Qty: 30 11RF loratadine [Claritin] 10 mg tablet 10 mg PO DAILY PRN (Reason: Allergy Symptoms) bupropion HCl [Wellbutrin SR] 100 mg Tablet Sustained-Release 12 Hr 100 mg PO QAM flurbiprofen 100 mg tablet 10 mg PO BID PRN (Reason: Pain) multivitamin Tablet 1 tab PO QAM Vitamin C 100 mg Tablet 100 mg PO DAILY vitamin B complex Tablet 1 tab PO DAILY Admission Data Admit Date/Time: 04/08/23 08:50 Attending Provider: Chuy Ruiz Admit Provider: Chuy Ruiz Primary Care Provider: Courtney Baxter Other Providers: [facility],Home Healthcare
--- NOTE | 2023-04-08 08:37 | Operative Report ---
Post Operative Report Pre & Post Diagnosis Operation Date: 04/08/23 07:00 Pre-Op Diagnosis: Right Knee Degenerative Joint Disease Post-Op Diagnosis: Right Knee Degenerative Joint Disease I identified the patient and participated in the time-out.: Yes Procedure Operation Date: 04/08/23 07:00 Actual Procedures p Right Total Knee Arthroplasty(Right) - Chuy Ruiz MD Surgeon Chuy Ruiz MD Shop Manager BART /Francisco J Estimated Blood Loss 25 Findings Consistent with Post-Op Diagnosis Same as postoperative diagnosis. Specimens None. Description of Procedure Please see detailed operative note. I attest to the content of the Intraoperative Record and any orders documented therein. Any exceptions are noted below.
--- NOTE | 2023-04-08 08:41 | Operative Report ---
Post Operative Report Pre & Post Diagnosis Operation Date: 04/08/23 07:00 Pre-Op Diagnosis: Right Knee Degenerative Joint Disease Post-Op Diagnosis: Right Knee Degenerative Joint Disease I identified the patient and participated in the time-out.: Yes Procedure Operation Date: 04/08/23 07:00 Actual Procedures p Right Total Knee Arthroplasty(Right) - Chuy Ruiz MD Surgeon CATHY Ruiz MD Lacquer Sprayer BART /Francisco J [place] Estimated Blood Loss 25 Findings Consistent with Post-Op Diagnosis see operative report Specimens see operative report Drains none Complications none Disposition Accompanied Patient To Recovery: Yes Indications This 58 year old female presented the office complaints of persisting right knee pain. She had tried conservative care measures, including injection therapy, without improvement. She elected to proceed with surgical intervention after being educated about potential risks and outcomes. Preoperative imaging was obtained. Description of Procedure The patient was administered a spinal anesthetic and then taken to the operating room where she was given sedation. She was prepped and draped in the usual sterile fashion. Please see Dr. Ruiz's operative report for specifics of the procedure. I was present for the entire case from initial patient positioning through final wound closure. Assistance was provided in tissue retraction, hemostasis, trial implant placement, final implant placement, and final wound closure. The patient was taken to the recovery room in satisfactory condition. I attest to the content of the Intraoperative Record and any orders documented therein. Any exceptions are noted below.
--- NOTE | 2023-04-08 09:03 | XRay Report ---
RIGHT KNEE 2 VIEWS History: Right total knee arthroplasty. Degenerative arthritis. Postop. FINDINGS: The patient is status post a right total knee arthroplasty. The hardware is intact. No frac ture or dislocation. Skin corona and surgical drains are in place. IMPRESSION: Right total knee arthroplasty. No evidence for hardware complication. ACT 112: Negative or not required by law. Electronically signed by: Hitesh Cortez M.D. 04/08/2023 9:01 AM
[2023-04-08] MEDS ORDERED: LORATADINE 10 MG TAB PO PRN (09:28)
[2023-04-08] MEDS ORDERED: METOCLOPRAMIDE HCL INJ 5 MG/ML 2 ML VIAL IV PRN (09:28)
[2023-04-08] MEDS ORDERED: ALUMINUM/MAGNESIUM SUSP 30 ML UDC PO PRN (09:28)
[2023-04-08] MEDS ORDERED: bisacodyL 10 MG SUPP PR PRN (09:28)
[2023-04-08] MEDS ORDERED: oxyCODONE HCL IR 5 MG TAB (IMMEDIATE RELEASE) PO PRN (09:28)
[2023-04-08] MEDS ORDERED: diphenhydrAMINE 50 MG/ML VIAL IV PRN (09:28)
[2023-04-08] MEDS ORDERED: NALOXONE HCL 0.4 MG/1 ML VIAL/CARP IV PRN (09:28)
[2023-04-08] MEDS ORDERED: NON-FORMULARY MEDICATION (Ascorbic Acid (Vitamin C) [Vitamin C] 100 mg Tablet) PO SCH (09:28)
[2023-04-08] MEDS ORDERED: HYDROmorphone INJ 0.5 MG/0.5 ML SYR IV PRN (09:28)
[2023-04-08] MEDS ORDERED: MAGNESIUM HYDROXIDE SUSP 30 ML UDC PO PRN (09:28)
[2023-04-08] MEDS: SODIUM CHLORIDE 0.9% 1,000 ML IV SCH ×2 (11:42→21:41)
[2023-04-08] MEDS: AZELASTINE HCL 0.1% NASAL 200 SPRAYS/27,400 MCG BTL NAE SCH (11:58)
--- NOTE | 2023-04-08 12:28 | Anesthesiology Progress Note ---
Date of Service April 08, 2023 Anesthesia Post Procedure Vital Signs Vital Signs: Temp Pulse Pulse Resp BP Pulse Ox O2 Del Method 04/08/23 11:38 36.8 C 76 16 109/58 L 99 Room Air 04/08/23 10:46 36.8 C 66 16 105/65 100 Room Air 04/08/23 10:06 36.6 C 72 16 114/71 98 Room Air 04/08/23 09:35 36.5 C 67 16 108/67 100 Room Air 04/08/23 09:20 36.8 C 63 15 102/53 L 98 Room Air 04/08/23 09:10 36.8 C 71 20 97/65 L 100 Room Air 04/08/23 09:00 75 17 94/67 L 100 Oxymask 04/08/23 08:50 36.5 C 74 20 94/60 L 100 Oxymask 04/08/23 08:40 82 23 92/53 L 100 Oxymask 04/08/23 08:34 36.5 C 92 H 16 93/76 L 100 Oxymask 04/08/23 05:42 36.8 C 89 20 126/71 98 Room Air O2 Flow Rate 04/08/23 11:38 04/08/23 10:46 04/08/23 10:06 04/08/23 09:35 04/08/23 09:20 04/08/23 09:10 04/08/23 09:00 3 04/08/23 08:50 3 04/08/23 08:40 3 04/08/23 08:34 5 04/08/23 05:42 Pain Intensity Right Knee: Pain Intensity: 0 Bilateral Shoulder: Pain Intensity: 3 Transfer of Care Handoff Completed per policy Notes Mental Status: alert / awake / arousable and participated in evaluation Patient Amnestic to Procedure: Yes Nausea / Vomiting: adequately controlled Pain: adequately controlled Airway Patency, RR, SpO2: stable & adequate BP & HR: stable & adequate Hydration State: stable & adequate Neuraxial Anesthesia: was administered and sensory block is resolving Anesthetic Complications: no major complications apparent and Pt Satisfied with anesthetic care
[2023-04-08] MEDS: KETOROLAC 30 MG/ML VIAL IV SCH ×3 (12:43→23:11)
[2023-04-08] MEDS: buPROPion SR 100 MG TABCR PO SCH (12:46)
[2023-04-08] MEDS: MULTIVITAMIN TAB PO SCH (12:46)
[2023-04-08] MEDS: DOCUSATE SODIUM 100 MG CAP PO SCH ×2 (12:46→20:16)
[2023-04-08] MEDS ORDERED: TRANEXAMIC ACID / 0.7% NACL 1,000 MG/100 ML BAG IV SCH (14:45)
[2023-04-08] MEDS: ACETAMINOPHEN 500 MG TAB PO SCH ×2 (14:57→23:11)
[2023-04-08] MEDS: ceFAZolin 2000MG 2,000 MG/15 ML SYR IV SCH ×2 (15:34→23:11)
--- NOTE | 2023-04-08 16:26 | Orthopedic Progress Note ---
Date of Service April 08, 2023 Assessment & Plan Admission and Anticipated Discharge Date Admission Date: April 08, 2023 Orthopedic Progress Note Postop check doing well status post right total knee replacement. Neurovascular check femoral sciatic nerve is normal can do a straight leg raise started her flexion exercises eating and drinking well. At this point in time denies any issues such as chest pain shortness of breath fever chills nausea vomiting or headache. Postop x-rays look excellent. Assessment doing well continue with care pathway discharge to home tomorrow. Change dressing tomorrow prior to discharge. Start anticoagulation tomorrow.
[2023-04-08] MEDS: FERROUS GLUCONATE 324 MG TAB PO SCH (16:41)
[2023-04-08] MEDS: ASCORBIC ACID 500 MG TAB PO SCH (16:41)
[2023-04-08] MEDS ORDERED: SENNA 8.6 MG TAB PO SCH (21:00)
[2023-04-09] MEDS: KETOROLAC 30 MG/ML VIAL IV SCH (05:45)
[2023-04-09] MEDS: ACETAMINOPHEN 500 MG TAB PO SCH (05:45)
[2023-04-09 06:23] LABS: Hematocrit (blood only) 32.1 % (37.0-47.0); Hemoglobin 10.7 g/dl (12.0-16.0); Mean Corpuscular Hemoglobin 29.7 pg (25.0-34.0); Mean Corpuscular Hgb Conc 33.3 g/dL (32.0-36.0); Mean Corpuscular Volume 89.2 fL (80.0-100.0); Mean Platelet Volume 11.7 fL (9.4-12.4); Platelet Count 187 K/uL (130-400); RDW Coefficient of Variation 12.2 % (11.5-14.5); RDW Standard Deviation 39.8 fL (36.4-46.3); White Blood Count 8.42 K/ul (4.8-10.8)
[2023-04-09 06:33] LABS: BUN Creatinine Ratio 17.6 (10-20); Est GFR (African American) 112.5 ml/min; Est GFR (Non-African American) 97.1 ml/min; Potassium 3.6 mmol/L (3.5-5.1)
--- NOTE | 2023-04-09 07:25 | Orthopedic Progress Note ---
Date of Service April 09, 2023 Assessment & Plan Admission and Anticipated Discharge Date Admission Date: April 08, 2023 Orthopedic Progress Note Postop day #1 status post right total knee replacement. Patient doing well denies chest pain shortness of breath fever chills nausea vomiting or headache. Vital signs are stable she is afebrile. Neurovascular check femoral sciatic nerve is normal. Wound clean and dry. Dressing change. Calves nontender neurovascular check again normal. Hematocrit stable at 32. Assessment doing well status post right total knee replacement discharged to home today. Start Eliquis today. Follow-up in 2 weeks.
[2023-04-09] MEDS ORDERED: dexAMETHasone 10 MG in SYRINGE 0 ML IV SCH (08:00)
[2023-04-09] MEDS: FERROUS GLUCONATE 324 MG TAB PO SCH (08:29)
[2023-04-09] MEDS: DOCUSATE SODIUM 100 MG CAP PO SCH (08:29)
[2023-04-09] MEDS: MULTIVITAMIN TAB PO SCH (08:30)
[2023-04-09] MEDS: ASCORBIC ACID 500 MG TAB PO SCH (08:30)
[2023-04-09] MEDS: buPROPion SR 100 MG TABCR PO SCH (08:30)
[2023-04-09] MEDS: AZELASTINE HCL 0.1% NASAL 200 SPRAYS/27,400 MCG BTL NAE SCH (08:31)
[2023-04-09] MEDS ORDERED: APIXABAN 2.5 MG TAB PO SCH (09:00)
== END 2023-04-09 10:19 | disposition home health service (06) ==
LOC: 3E 05:11 → ASU 05:11